=== PATIENT | female | born 1945 | race African-American/Black ===

== ENCOUNTER → 2020-03-27 13:59 | Outpatient (CLI) | payer MEDICARE, OTHER, SELFPAY ==
--- NOTE | 2020-03-27 | DI.MRI.S_ITS ---
PROCEDURE: MR KNEE LT WO CON INDICATIONS: Pain in left knee TECHNIQUE: Noncontrast sagittal PD fast spin echo and T2 fast spin echo with fat saturation, sagittal 3-D FLASH with fat saturation; coronal T1 spin echo and PD fast spin echo with fat saturation, and axial PD fast spin echo with fat saturation through the knee. COMPARISON: [facility] [place], CR, XR KNEE ARTHRITIC SERIES LT, 03/12/2020, 9:30. FINDINGS: Image quality: Excellent. Menisci: Mild intrasubstance signal is seen within body of the medial meniscus without definite extension to an articular surface, compatible with intrasubstance degeneration. The lateral meniscus is intact. There is no meniscal extrusion. Cruciate ligaments: The anterior and posterior cruciate ligaments appear intact. Medial structures: The medial collateral ligament appears intact. Visualized portions of the pes anserinus tendons appear normal. No abnormal bursal fluid. Lateral structures: The lateral collateral ligament, long and short heads of the biceps femoris tendon appear intact. The popliteus tendon is intact. Iliotibial band appears normal. Anterior structures: Enthesophyte is seen at the distal quadriceps tendon insertion. There is borderline patella barbi. Patellar alignment is normal. No femoral trochlear dysplasia or ventral trochlear prominence. No edema in the infrapatellar fat pad. Bones and cartilage: No bone marrow contusions or fractures. Moderate partial-thickness cartilage thinning is seen in the weight-bearing portion of the medial femorotibial compartment. Focal subchondral cystic changes are noted in the medial femoral condyle. The articular cartilage in the lateral compartment is maintained. No defect is identified in the anterior cartilage. Joint space: There is physiologic knee joint fluid. There is a trace medial popliteal cyst. IMPRESSION: 1. No acute trabecular bone injury. Intact cruciate and collateral ligaments. 2. 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 3. 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 Dictated by: Won Peter M.D. on 03/27/2020 at 17:54 Approved by: Won Peter M.D. on 03/27/2020 at 18:02
== END ==
PROVIDERS: Family Provider Family Medicine; PCP Family Medicine; Referring Provider Orthopaedic Surgery; Visit Provider Orthopaedic Surgery
DX: M25.562 Pain in left knee (principal); M94.262 Chondromalacia, left knee
CPT/HCPCS: 73721